=== PATIENT | female | born 1945 | race Caucasian/White ===

== ENCOUNTER 2022-07-22 11:03 | Emergency (ER) | payer MEDICARE ==
[2022-07-22] MEDS ORDERED: Sodium Chloride 0.9% 2.5 ML Syringe FLUSH PRN (11:24)
[2022-07-22] MEDS ORDERED: Sodium Chloride 0.9% 10 ML Syringe FLUSH PRN (11:24)
[2022-07-22 11:49] LABS: CARBON DIOXIDE,CO2 25.2 mmol/L (21.0-32.0)
[2022-07-22] MEDS ORDERED: Alum Hydro/Mag Hydro/Simeth XS 15 ML, Metoclopramide 5 MG, Lidocaine 2% 5 ML PO ONE ×3 (11:53)
== END 2022-07-22 12:43 | disposition home or self-care (01) ==
LOC: MW.ED 11:03
DX: R12 Heartburn (principal); I25.10 Atherosclerotic heart disease of native coronary artery without angina pectoris
CPT/HCPCS: 36415; 71045; 80053; 84484; 85025; 93005; 99285; J3490; 93010; 99284

== ENCOUNTER 2022-08-02 09:26 | Emergency (ER) | payer MEDICARE ==
[2022-08-02] MEDS ORDERED: Heparin Sodium/0.45% NaCl 500 ML IV SCH (09:45)
[2022-08-02] MEDS ORDERED: Tenecteplase 50 MG Kit IV ONE (09:46)
[2022-08-02] MEDS ORDERED: Aspirin 81 MG Tab.Chew PO ONE (09:47)
[2022-08-02] MEDS ORDERED: Ticagrelor 90 MG Tab PO ONE (09:48)
[2022-08-02] MEDS ORDERED: DOPamine/Dextrose 5%-Water 400 MG/250 ML BAG IV SCH (10:00)
[2022-08-02] MEDS ORDERED: Norepinephrine 4 MG in Dextrose 5% in Water 246 ML IV SCH ×4 (10:00)
[2022-08-02] MEDS ORDERED: Heparin Sodium 5,000 Units/ML Vial IVPUSH ONE (10:15)
[2022-08-02 10:23] LABS: BLOOD UREA NITROGEN,BUN 14 mg/dL (7.0-18.0); CARBON DIOXIDE,CO2 23.2 mmol/L (21.0-32.0); CHLORIDE,CL 107 mmol/L (98-107); ESTIMATED GFR 76 mL/min (>60); GLUCOSE RANDOM 146 mg/dL (74-106); POTASSIUM,K 3.2 mmol/L (3.5-5.1); SODIUM,NA 141 mmol/L (136-145)
[2022-08-02] MEDS: Ondansetron 4 MG/2 ML SDV ONE ×2 (10:40→19:32)
[2022-08-02] MEDS ORDERED: Ondansetron 4 MG/2 ML SDV IVPUSH ONE (19:29)
== END 2022-08-02 10:37 ==
LOC: MW.ED 09:26
DX: I24.9 Acute ischemic heart disease, unspecified (principal); Z20.822 Contact with and (suspected) exposure to COVID-19
CPT/HCPCS: 36415; 51702; 80053; 83880; 84484; 85025; 85610; 85730; 92977; 93005; 96365; 96366; 96368; 96375; 96376; 99291; A9270; J1265; J1644; J2405; J3101; U0002